=== PATIENT | female | born 1990 | race Caucasian/White ===

== ENCOUNTER 2016-03-11 16:35 | Emergency (ER) | payer OTHER ==
[2016-03-11] MEDS ORDERED: ONDANSETRON 4 MG TAB.RAPDIS PO ONE (16:52)
[2016-03-11 16:54] VITALS: BP 132/71
[2016-03-11] MEDS ORDERED: ONDANSETRON HCL 8 MG TABLET ONE (17:28)
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
== END 2016-03-11 17:53 | disposition home or self-care (01) ==
LOC: ER 16:35
DX: M54.2 Cervicalgia (principal); M25.512 Pain in left shoulder; V89.2XXA Person injured in unspecified motor-vehicle accident, traffic, initial encounter; O26.891 Other specified pregnancy related conditions, first trimester; Z3A.01 Less than 8 weeks gestation of pregnancy

== ENCOUNTER 2016-10-31 16:30 | Inpatient (IN) | payer OTHER ==
[2016-10-31] MEDS ORDERED: LIDOCAINE HCL 50 ML VIAL PERI PRN (17:29)
[2016-10-31] MEDS ORDERED: RINGER'S SOLUTION,LACTATED 1,000 ML IV ONE (17:29)
[2016-10-31] MEDS ORDERED: OXYTOCIN/DEXTROSE 5%-WATER 30 UNITS/500 ML BAG IV ONE ×2 (17:29→22:22)
[2016-10-31] MEDS ORDERED: DEXTROSE 5%-LACTATED RINGERS 1,000 ML IV PRN (17:29)
[2016-10-31] MEDS ORDERED: ONDANSETRON HCL/PF 2 MG/ML VIAL IV PRN (17:50)
[2016-10-31] MEDS ORDERED: BUPIVACAINE HCL/0.9 % NACL/PF 250 ML EP PRN (17:50)
[2016-10-31] MEDS ORDERED: NALOXONE HCL 1 MG/1 ML SYRG IV PRN (17:50)
[2016-10-31] MEDS ORDERED: fentaNYL CITRATE/PF 50 MCG/ML AMPUL IT SCH (18:00)
--- NOTE | 2016-10-31 18:56 | OR ---
Anesthesia Procedure Note - Anesthesia Procedure Note Narrative: Vital Signs - Last Taken Temp 36.7 C 10/31/16 18:08 Pulse 81 10/31/16 18:08 Resp 18 10/31/16 18:08 BP 125/68 10/31/16 18:08 Pulse Ox 97 10/31/16 18:08 10/31/16 18:53 ANESTHESIA PROCEDURE NOTE Date of Procedure: 10/31/2016 Time of procedure: 1830. Performed by: Stephon Forrest CRNA [place] Sample Case: None. Preprocedure diagnosis: Active labor. Post procedure diagnosis: Same. Procedure: Insertion of labor epidural. 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 Findings: See below. Details of the procedure: The patient was placed in a sitting position. Back was prepped with DuraPrep. Patient was then draped in a sterile fashion. Lidocaine 1% was infiltrated to the skin and subcutaneous tissues at the level of the L3 4 interspace. The epidural space was identified using a 18-gauge Tuohy needle with [id number] technique. 20 mcg fentanyl was given intrathecally using a 27 ga. spinal needle. Epidural catheter was inserted without difficulty. Negative test dose was elicited using 5 mL of 1.5% preservative-free lidocaine plus epinephrine 1 200,000. The epidural catheter was then taped and secured in place. EBL: Minimal. Fluids: N/A. Specimen: N/A. Post procedure condition: The patient tolerated the procedure well. No complications were noted. Thank you for this consultation. Marcus CRNA
--- NOTE | 2016-10-31 22:20 | OR ---
Operative Report - Dictated Report Narrative: Spontaneous vaginal delivery of viable male at 2154 on 10/31/2016 with Apgars 8 and 9, weighing 3421 g in LEE position. Nuchal cord 1-tight. Cord clamping delayed approximately 1 minute Placenta delivered complete, intact, with three vessel cord Estimated blood loss: less than 50 ml Lacerations: Right minor periurethral abrasion - no repair.
[2016-10-31] MEDS ORDERED: BISACODYL 10 MG SUPP.RECT RC PRN (22:22)
[2016-10-31] MEDS ORDERED: BENZOCAINE/MENTHOL 81 SPRAY CAN TP PRN (22:22)
[2016-10-31] MEDS ORDERED: oxyCODONE HCL/ACETAMINOPHEN 1 TAB TABLET PO PRN (22:22)
[2016-10-31] MEDS ORDERED: HYDROCORTISONE 30 APPL TUBE TP PRN (22:22)
[2016-10-31] MEDS ORDERED: GLYCERIN/WITCH HAZEL LEAF 40 APPL BOX TP PRN (22:22)
[2016-10-31] MEDS ORDERED: SENNOSIDES 8.6 MG TABLET PO PRN (22:22)
[2016-10-31] MEDS: IBUPROFEN 800 MG TABLET PO PRN (22:57)
[2016-11-01] MEDS: oxyCODONE HCL/ACETAMINOPHEN 1 TAB TABLET PO PRN ×2 (07:10→19:16)
[2016-11-01] MEDS: IBUPROFEN 800 MG TABLET PO PRN ×2 (07:11→14:26)
[2016-11-01] MEDS ORDERED: RHO(D) IMMUNE GLOBULIN 300 MCG DISP.SYRIN IM ONE (11:29)
[2016-11-01] MEDS: DOCUSATE SODIUM 100 MG CAPSULE PO SCH ×2 (11:57→21:12)
--- NOTE | 2016-11-01 13:49 | PN ---
Subjective - Date and Time Seen Date: 11/01/16 Time: 13:48 Objective - Vitals Vitals: Last Vital Signs Temp 36.3 C L 11/01/16 07:40 Pulse 75 11/01/16 07:40 Resp 18 11/01/16 07:40 BP 109/64 11/01/16 07:40 Pulse Ox 97 11/01/16 07:40 Patient denies complaints. Lochia wnl Abdomen - soft, nontender Uterus - firm, at umbilicus - 1 No calf tenderness Impression: day #1 - s/p spontaneous vaginal delivery. Plan: Continue routine care
[2016-11-02] MEDS: oxyCODONE HCL/ACETAMINOPHEN 1 TAB TABLET PO PRN ×2 (02:45→08:58)
[2016-11-02] MEDS: IBUPROFEN 800 MG TABLET PO PRN ×2 (02:46→08:58)
[2016-11-02 08:53] VITALS: BP 104/52
[2016-11-02] MEDS: DOCUSATE SODIUM 100 MG CAPSULE PO SCH (08:58)
== END 2016-11-02 12:50 | disposition home or self-care (01) | DRG 775 ==
LOC: OB 16:30 → MS 11-01 13:55
PROVIDERS: ADMIT Obstetrics & Gynecology; ATTEND Obstetrics & Gynecology
PROC: 10E0XZZ Delivery of Products of Conception, External Approach (ICD-10-PCS; principal; 2016-10-31)
PROC: 4A1HXCZ Monitoring of Products of Conception, Cardiac Rate, External Approach (ICD-10-PCS; 2016-10-31)
PROC: 00HU33Z Insertion of Infusion Device into Spinal Canal, Percutaneous Approach (ICD-10-PCS; 2016-10-31)
DX: O69.1XX0 Labor and delivery complicated by cord around neck, with compression, not applicable or unspecified (principal); O99.02 Anemia complicating childbirth; D64.9 Anemia, unspecified; Z3A.37 37 weeks gestation of pregnancy; Z37.0 Single live birth
CPT/HCPCS: 59025; 85460; J2790